=== PATIENT | male | born 1940 | race Caucasian/White ===

== ENCOUNTER → 2019-08-12 | Outpatient (CLI) | payer MEDICARE, OTHER ==
[~2019-08-12] MED LIST: BENAML10/5 PO; NAPR220 PO
== END | disposition home or self-care (01) ==
LOC: LAB SHORT 07:57 → PLD 07:57
DX: C44.319 Basal cell carcinoma of skin of other parts of face (principal); L82.1 Other seborrheic keratosis; L81.4 Other melanin hyperpigmentation
CPT/HCPCS: 88305

== ENCOUNTER 2020-05-25 11:47 | Inpatient (IN) | payer MEDICARE, OTHER ==
[~2020-05-25] VITALS: Ht 182.9 cm; Wt 115.2 kg
[2020-05-25] MEDS ORDERED: LANOXIN PO (12:17)
[2020-05-25] MEDS ORDERED: FUROSEMIDE40 MG PO (12:18)
[2020-05-25] MEDS ORDERED: Amlodipine-Ben1 EAC1 PO (12:18)
[2020-05-25] MEDS ORDERED: POTA10T (12:19)
[2020-05-25] MEDS ORDERED: METFORMIN HCL500 M2 PO (12:19)
[2020-05-25 12:30] LABS: BASOPHILS ABSOLUTE AUTO 0.05 K/mm3 (0.00-0.23); BASOPHILS PERCENT AUTO 0 % (0-2); EOSINOPHILS ABSOLUTE AUTO 0.04 K/mm3 (0.00-0.68); EOSINOPHILS PERCENT AUTO 0 % (0-6); Hematocrit 44.5 % (37.0-53.0); Hemoglobin 14.2 g/dL (13.5-17.5); IMMATURE GRAN ABSOLUTE AUTO 0.04 K/mm3 (0.00-0.10); IMMATURE GRAN PERCENT AUTO 0 % (0-1); LYMPHOCYTES ABSOLUTE AUTO 0.93 K/mm3 (0.84-5.20); LYMPHOCYTES PERCENT AUTO 7 % (21-46); MONOCYTES ABSOLUTE AUTO 0.98 K/mm3 (0.16-1.47); MONOCYTES PERCENT AUTO 8 % (4-13); Mean Corpuscular HGB 29.6 pg (26.0-34.0); Mean Corpuscular HGB Conc 31.9 g/dL (31.5-36.5); Mean Corpuscular Volume 93 fL (80-100); Mean Platelet Volume 9.8 fL (9.1-12.4); NEUTROPHILS PERCENT AUTO 84 % (41-73); Platelet Count 267 K/mm3 (150-400); White Blood Cell Count 13.14 K/mm3 (4.00-11.30)
[2020-05-25 12:46] LABS: Alanine Aminotransfer (ALT/SGP 27 U/L (12-78); Albumin/Globulin Ratio 0.5 (0.8-1.8); Alk Phos 410 U/L (50-136); Anion Gap 8 mmol/L (6-16); Aspartate Aminotrans (AST/SGOT 109 U/L (12-37); Bilirubin, Total 1.7 mg/dL (0.1-1.0); Blood Urea Nitrogen 15 mg/dL (8-24); Bun/Creatinine Ratio 21.2 (12.0-20.0); CO2, Blood 29 mmol/L (21-32); Calcium, Blood 8.7 mg/dL (8.5-10.1); Chloride, Blood 102 mmol/L (98-108); Creatinine, Blood 0.71 mg/dL (0.60-1.20); Globulin, Blood 4.3 g/dL (2.2-4.0); Glomerular Filtration Rate >60 (60-); Glucose, Blood 136 mg/dL (70-99); Potassium, Blood 3.8 mmol/L (3.5-5.5); Sodium, Blood 139 mmol/L (136-145); Total Protein, Blood 6.3 g/dL (6.4-8.2)
[2020-05-25 14:14] LABS: Digoxin (Lanoxin) 0.07 ug/mL (0.80-2.00); Troponin I <0.015 ng/mL (0.000-0.040)
[2020-05-25 15:08] LABS: Influenza A, PCR NEGATIVE (NEGATIVE); Influenza B, PCR NEGATIVE (NEGATIVE); Resp Syncytial Virus, PCR NEGATIVE (NEGATIVE); SARS-Cov-2 (COVID-19) PCR, MMC NEGATIVE (NEGATIVE)
[2020-05-25 17:42] LABS: Source, Urine Clean Catch
[2020-05-25 17:55] LABS: Appearance, Urine Hazy (Clear); Blood, Urine 4+ (Neg); Color, Urine Amber (P-Yellow); Glucose Qualitative, Urine Neg (Neg); Ketones, Urine 1+ (Neg); Leukocyte Esterase, Urine 1+ (Neg); Nitrite, Urine Pos (Neg); Protein, Urine 2+ (Neg); Specific Gravity, Urine 1.025 (1.003-1.022); Urobilinogen, Urine 4+ (Normal)
[2020-05-25 18:23] LABS: Bilirubin, Urine 1+ (Neg)
[2020-05-25 18:28] LABS: Mucus Heavy (0-Heavy); Squamous Epithelial Cells Rare /hpf (Few)
[2020-05-25 18:29] LABS: Amorphous Light (0-Heavy); Bacteria Many /hpf
--- NOTE | 2020-05-25 18:51 | NUR ---
SHIFT SUMMARY PT ADMITTED FROM ED TO ICU 10 AROUND 1700. PT IS ALERT AND ORIENTEDx4, VERY HARD OF HEARING. PT ARRIVED WITH BIPAP ON 10/ FIO2 30%. FINE CRACKLES NOTED IN THE BASES. MONITOR SHOWED PT TO BE IN A-FIB RVR AND PT WAS STARTED ON AMNIODARON GTT PER ORDERS. SBP LOWS, MAP HAS MAINTAINED >65, DR ANGUIANO AWARE, LEVOPHED ON STANDBY. ALBRECHT CATH PLACED WITH DARK MCKAY URINE RETURNED. ABDOMINAL ULTRASOUND COMPLETED, AWAITING RESULTS.
[2020-05-25 19:47] LABS: PCO2 Arterial 44.9 mmHg (35-45); PO2 Arterial 75.8 mmHg (80-100); pH Blood Arterial 7.52 (7.35-7.45)
--- NOTE | 2020-05-25 20:02 | NUR ---
ASSUMED CARE OF PT AT 1915. REPORT RECEIVED AT BEDSIDE. PT PRESENTS IN BED. AMIODARONE INFUSING. PT VERY [place]. ANSWERS QUESTIONS APPROPRIATELY. NO COMPLAINTS OF PAIN OR DYSPNEA AT THIS TIME. ABG IN PROCESS OF BEING DRAWN AND PROCESSED BY RT. REFLEX LABS DRAWN FOR LACTIC ACID AND TROPONIN. PENDING RESULTS. WILL REVIEW CHART AND PLAN OF CARE FOR THIS PT.
--- NOTE | 2020-05-25 22:30 | NUR ---
PT HAS GONE AND RETURNED FROM CT. RESULTS BEING READ BY [facility]IRTUAL RADIOLOGY. PENDING RESULTS. PT TOLERATED THIS FAIR. OF NOTE: HEART RATE REMAINS ELEVATED 150'S TO 180'S IN AFIB RVR.
--- NOTE | 2020-05-26 02:08 | NUR ---
DR ANGUIANO AWARE OF CT RESULTS AND SHE SPOKE WITH DR ROTH PER PHONE AND REPORTED BACK THAT IT WILL BE DR RIVERA THAT WILL SEE PT IN AM. DID UPDATE PT ON RESULTS PER REQUEST OF . PT DID REQUEST THAT I CALL BERTHA TO INFORM HER OF FINDINGS. DID SO, AND ALLOWED FOR QUESTIONS. PT'S HEART RATE HAS REMAINED ELEVATED. AMIODARONE DRIP TO 0.5 MG/HR FOR 18 HOURS. ORDER RECEIVED FROM DR RIVERA FOR DIGOXIN AND FLUID BOLUSES. THIS IN PROCESS OF BEING DONE. PT REFUSES TO WEAR CPAP, AND IS NOW ON 5 L/M O2 PER NASAL CANNULA. WILL CONTINUE TO MONITOR.
--- NOTE | 2020-05-26 02:37 | NUR ---
PT HAS DROP IN BLOOD PRESSURES EVEN WITH SALINE BOLUS IN PROCESS. HAVE INTITIATED LEVOPHED DRIP AT 5 MCG'S/MIN. WILL TITRATE TO MAINTAIN MAP >65. PT NOTED TO BE SWEATY. AFEBRILE AT THIS TIME. WILL MONITOR.
[2020-05-26 04:30] LABS: Hematocrit 43.2 % (37.0-53.0); Hemoglobin 13.7 g/dL (13.5-17.5); Mean Corpuscular HGB 29.3 pg (26.0-34.0); Mean Corpuscular HGB Conc 31.7 g/dL (31.5-36.5); Mean Corpuscular Volume 93 fL (80-100); Mean Platelet Volume 10.2 fL (9.1-12.4); Platelet Count 270 K/mm3 (150-400); RDW Coefficient Variation 15.1 % (11.7-14.2); RDW Standard Deviation 51.2 fL (35.1-46.3); Red Blood Cell Count 4.67 M/mm3 (4.30-5.90); White Blood Cell Count 18.22 K/mm3 (4.00-11.30)
[2020-05-26 04:50] LABS: Alanine Aminotransfer (ALT/SGP 23 U/L (12-78); Albumin, Blood 1.9 g/dL (3.4-5.0); Albumin/Globulin Ratio 0.5 (0.8-1.8); Alk Phos 338 U/L (50-136); Anion Gap 6 mmol/L (6-16); Aspartate Aminotrans (AST/SGOT 88 U/L (12-37); Bilirubin, Total 2.9 mg/dL (0.1-1.0); Blood Urea Nitrogen 18 mg/dL (8-24); Bun/Creatinine Ratio 20.5 (12.0-20.0); CO2, Blood 32 mmol/L (21-32); Calcium, Blood 8.1 mg/dL (8.5-10.1); Chloride, Blood 104 mmol/L (98-108); Creatinine, Blood 0.88 mg/dL (0.60-1.20); Globulin, Blood 3.8 g/dL (2.2-4.0); Glomerular Filtration Rate >60 (60-); Glucose, Blood 91 mg/dL (70-99); Potassium, Blood 3.3 mmol/L (3.5-5.5); Sodium, Blood 142 mmol/L (136-145); Total Protein, Blood 5.7 g/dL (6.4-8.2); Troponin I <0.015 ng/mL (0.000-0.040)
[2020-05-26 05:06] LABS: D-Dimer, Quantitative 14.61 mg/L FEU (0.00-0.52); International Normalized Ratio 1.19; Prothrombin Time Results 12.6 Sec (9.7-11.5)
--- NOTE | 2020-05-26 06:30 | NUR ---
PT HAS CONTINUED ON 5CG LEVOPHED WHEREAS HIS BLOOD PRESSURES HAVE BEEN MAINTAINING WITH MAP > 65. PT HAS BEEN ABLE TO REST DURING THE NIGHT. NO FURTHER COMPLAINTS OF ABDOMINAL PAIN OR CATHETER PAIN. WILL CONTINUE TO MONITOR PT, AND WILL REPORT OFF TO ONCOMING RN.
--- NOTE | 2020-05-26 08:30 | NUR ---
ASSUMED CARE OF PT PT IS ALERT AND ORIENTEDx4, VERY [place], RIGHT EAR BED, RESTING IN BED. DR RIVERA CAME TO EVAL PT AND WILL ROUND BACK AFTER DISCUSSING CT RESULTS WITH RADIOLOGIST. AMNIODARONE INFUSING AT 0.5MG/MIN, A-FIB ON THE MONITOR RATE 90'S-100'S. PT ON LEVOPHED AT 5MCG/MIN, MAP >65%. PTS O2 AT 4L VIA NC, SPO2 > 92%. ATTEMPTED TO ANSWER QUESTIONS ABOUT POSSIBLE SURGERY. PT REQUESTED FAMILY BE INVOLVED IN DECISIONS. CALL PT'S FRIEND AND FAMILY AND WILL COME IN FOR CARE CONFERENCE. DISCUSSED PTS CASE WITH PALLITIVE CARE.
--- NOTE | 2020-05-26 11:25 | NUR ---
Case conference with pt's RN and hospitalist prior to my initial visit. Upon entering room at tail end of Dr Shaffer's visit, pt and family members listening to give full report of status, concerns and plan of care. finished her assessment and I remained to discuss pt's wishes, goals of care and answer questions. Pt in obvious severe pain with palpation to very large and distended abdomen. Pt's lower extremeties very edemetous alfie. Pt is extremely [place] and does best with us talking directly into his right ear. He is alert and oriented and asks appropriate questions. When asked if he had any questions, he stated I will in 5 minutes. He stated several times after being given a lot of information by and some more info from me and his nurse that he would discuss his options and wishes with his constantine and his friend(ex-) at bedside also and let us know what he wanted to do. Staff left the room and gave privacy to pt and family for further discussion. Later I met with constantine and ex- outside of ICU. They report pt has decided to proceed with abd surgery and will reeval further tx after that. They asked advice re: pt's other constantine, who is currently in active in-pt tx/rehab for alcoholism and whether or not to update her re: her dad. I recommended they contact the rehab staff and follow their professional advice based on her individual circumstances and whether or not she was thru a detox period and clear headed at this time. Family expressed appreciation for the care and conversations with Danis t/o the am. Plan to f/u after surgery for s/s management, advanced care planning and support.
--- NOTE | 2020-05-26 12:03 | NUR ---
REASSESSMENT PT RESTING IN BED, CARE CONFRENCE DONE WITH PT, FAMILY, CHIKSI NINO FROM PALLITIVE CARE AND DR ANGUIANO. TREATMENT OPTIONS WERE PRESENTED AND PT RECENTLY EXPRESSED TO RN THAT HE WANTS TO PROCEED WITH SURGERY. MONITOR CONTINUES TO SHOW PT TO BE IN A-FIB, WITH RATES 90-130'S. AMNIODARONE REMAINS ON WITH NO CHANGES. LEVOPHED FOR BLOOD PRESSURE SUPPORT HAS BEEN TITRATED DOWN TO MAINTAIN MAP >65. ALBRECHT DRAINING DARK MCKAY URINE WITH 25-30MLS/HR, DR ANGUIANO MADE AWARE. PICC LINE RN AT BEDSIDE PLACING LINE. ABDOMINAL PAIN NOT IMPROVING WITH INITIAL PRN FENTYNAL, ORDERS RECEIVED FOR INCREASED DOSE.
--- NOTE | 2020-05-26 14:29 | NUR ---
PT TAKEN TO OR BY ANETHESIOLOGIST AND OR TEAM. FAMILY WAS AT BEDSIDE PRIOR TO PT BEING TAKEN. CONTACT # FOR FAMILY: SAVI (DAUGHTER) - CELL: [phone]
--- NOTE | 2020-05-26 18:34 | NUR ---
SHIFT SUMMARY PT ARRIVED BACK INTUBATED FROM OR AT 1730 FOR SIGMOID COLECTOMY W/ END COLOSTOMY. PRIOR TO ARRIVAL PT HAD RECEIVED DOSE OF SEDATIVE/PARALYTIC BY ANETHESIOLOGIST. LEVOPHED @ 8 AND AMNIODARONE COMPLETED DURING PROCEDURE. PICC LINE PLACED PRIOR TO OR. PT REMAINS IN A-FIB WITH RATES 90'S-130'S. MIDLINE INCISION WITH SCANT AMOUNT RED DRAINAGE ON JADE DRESSING. DRAINAGED MARKED UPON ARRIVAL TO ICU, NO CHANGES TO AMOUNT NOTED. LLQ HAS NEW COLOSTOMY WITH APPLIANCE, NO DRAINAGE, STOMA RED. ALBRECHT IN PLACE, DIMINISHED OUTPUT, MORE ORANGE/CLOUDY AFTER PT RETURNED FROM OR. AFTER PT STARTED TO WAKE UP, PROPOFOL WAS INITIATED. PT PLACED IN RESTRAINTS TO PROTECT FROM SELF EXTUBATION. LEVOPHED TITRATED UP TO MAINTAIN MAP >65.
--- NOTE | 2020-05-26 20:00 | NUR ---
ASSUMED CARE OF PT AT 1915. REPORT RECEIVED AT BEDSIDE. PT PRESENTS IN BED. INTUBATED. AC 14, Tv 500, FIO2 65 PERCENT, PEEP 5. PT ON LEVOPHED DRIP TO MAINTAIN MAP > 65. MIDLINE DRESSING WITH SOME SHADOW DRAINAGE. PER OFFGOING RN SHE STATES SOME NEW DRAINAGE. BOWEL TONES HYPOACTIVE. COLOSTOMY INTACT. STOMA WNL. WILL REVIEW CHART AND PLAN OF CARE FOR THIS PT.
[2020-05-26 20:14] LABS: PCO2 Venous 47.8 mmHg (38-42); pH Blood Venous 7.42 (7.34-7.37)
[2020-05-26 20:15] LABS: Base Excess Venous 6.1 mmol/L; Bicarbonate Venous 28.8 mmol/L (24.0-30.0); PO2 Venous 61.4 mmHg (38-42)
--- NOTE | 2020-05-26 23:49 | NUR ---
RESPIRATORY THERAPY READJUST ETT PER DR PRUETT. 23 AT TEETH. HAVE MEDICATED TWICE THIS SHIFT WITH 50 MCG FENTANYL FOR VENT TOLERANCE, AND POST OP PAIN. HEART RATE HAS REMAINED LESS THAN 130 BPM'S. NO S/S DISTRESS BY PT. WILL CONTINUE TO MONTIOR.
--- NOTE | 2020-05-27 06:39 | NUR ---
PT HAS BEEN MEDICATED THREE TIMES WITH 50 MCG'S FENTANYL FOR PRESUMED POST OP PAIN AND FOR VENT TOLERANCE. GOOD RESULTS. HAVE BEEN ATTEMPTING TO TITRATE DOWN LEVOPHED THOUGH THIS HAS BEEN SLOW PROGRESS. PROPOFOL HAS BEEN AT 30 MCG'S. HAS HAD LOW GRADE TEMP AT 100.2. REMOVED BLANKETS. WILL CONTINUE TO MONITOR PT, AND WILL REPORT OFF TO ONCOMING RN.
--- NOTE | 2020-05-27 07:24 | NUR ---
ASSUMED CARE: PT INTUBATED WITH SETTINGS AC/14/500/55/5. CURRENTLY ON LEVOPHED AT 15MCG/MIN. PROPOFOL FOR SEDATION AT [address] AND CLAMPED. PLACEMENT VERIFIED BY XRAY. NPO AT THIS TIME. WILL VERIFY WITH MD ON USE. ALBRECHT IN PLACE. BILATERAL WRIST RESTRAINTS TO PROTECT LINES. NO ACUTE NEEDS OR CONCERNS.
[2020-05-27 07:52] LABS: Hematocrit 41.6 % (37.0-53.0); Hemoglobin 13.3 g/dL (13.5-17.5); Mean Corpuscular HGB 29.4 pg (26.0-34.0); Mean Corpuscular Volume 92 fL (80-100); Mean Platelet Volume 9.5 fL (9.1-12.4); Platelet Count 278 K/mm3 (150-400); RDW Coefficient Variation 15.2 % (11.7-14.2); RDW Standard Deviation 51.5 fL (35.1-46.3); Red Blood Cell Count 4.52 M/mm3 (4.30-5.90); White Blood Cell Count 14.69 K/mm3 (4.00-11.30)
[2020-05-27 08:09] LABS: Anion Gap 6 mmol/L (6-16); Blood Urea Nitrogen 25 mg/dL (8-24); Bun/Creatinine Ratio 24.5 (12.0-20.0); CO2, Blood 31 mmol/L (21-32); Calcium, Blood 8.1 mg/dL (8.5-10.1); Chloride, Blood 102 mmol/L (98-108); Creatinine, Blood 1.02 mg/dL (0.60-1.20); Glomerular Filtration Rate >60 (60-); Glucose, Blood 156 mg/dL (70-99); Potassium, Blood 3.9 mmol/L (3.5-5.5); Sodium, Blood 139 mmol/L (136-145)
--- NOTE | 2020-05-27 09:00 | NUR ---
SEDATION VACATION: PT OPENED EYES WHEN SPOKEN TO. ASKED PT IF HE COULD SQUEEZE HANDS AND HE SHOOK HIS HEAD NO. UNABLE TO FOLLOW COMMANDS. PT GRIMACED TO NOXIOUS STIMULI. PROPOFOL RETURNED TO 30MCG
--- NOTE | 2020-05-27 13:07 | NUR ---
DISCUSSED PT'S HR WITH DR MANZANO. REVIEWED MEDS AND PLACED NEW ORDERS. INSTRUCTED RN TO GIVE FIRST DOSE DIGOXIN, THEN SECOND DOSE, THEN THREE DOSES OF ALBUMIN AND THEN CARDIZEM GTT AFTER THAT. RELIGIOUS ASSISTANT AWARE
--- NOTE | 2020-05-27 14:25 | NUR ---
CALL TO DR RIVERA TO DISCUSS FURTHER PLANS FOR PT. STATES OK TO USE OG FOR MEDS OR FEEDINGS, DO NOT NEED TO DECOMPRESS AT THIS TIME. AWARE THAT PT IS HAVING HYPOACTIVE BOWEL TONES. RELAYED TO DR RIVERA THAT SMALL AMOUNT OF BLOOD IS COMING FROM OSTOMY BUT NO STOOL YET AND THAT PT IS STILL PUTTING OUT SOME STOOL RECTALLY. NO FURTHER CONCNERNS AT THIS TIME.
--- NOTE | 2020-05-27 15:22 | NUR ---
SPOKE WITH DR MANZANO AND MADE HIM AWARE THAT DR RIVERA SAYS WE CAN USE OG IF WE NEED TO. DR MANZANO SAYS TO CONTINUE WITH PLAN FOR ALBUMIN AND CARDIZEM IF NEEDED FOR HR GREATER THAN 120. STATES THAT HE WILL REEVALUATE FOR ORAL MEDS TOMORROW. FAMILY AT BEDSIDE. NO FURTHER NEEDS AT THIS TIME
--- NOTE | 2020-05-27 18:23 | NUR ---
PT TURNED TO LEFT SIDE AND NOTED TO DESATURATE INTO THE 80S. OG FILLED WITH GREEN BILE THAT HAS BEEN CLEAR BEFORE. CAGE LOADER RECOMMENDED LIS. TITRATED FIO2 TO 45% TO MAINTAIN SATURATION.
--- NOTE | 2020-05-27 18:38 | NUR ---
SHIFT SUMMARY: PT REMAINS INTUBATED AC 14/500/45%/5. HAD TO INCREASE FIO2 WITH TURN TO LEFT SIDE. BILE NOTED IN NG WITH TURN AND LIS STARTED TO RELEAVE DISTENDED ABDOMEN. MEDICATED X1 FOR PAIN, NO EXTRA DRAINAGE FROM ABDOMINAL INCISION NOTED. LEVOPHED OFF, PROPOFOL AT 30MCG AT THIS TIME. MEDICATED AFIB RVR WITH DIGOXIN, FLUID BOLUS AND ALBUMIN. HR IMPROVED AT THIS TIME. CARDIZEM GTT AVAILABLE IF NEEDED. NO FURTHER NEEDS AT THIS TIME.
--- NOTE | 2020-05-27 21:00 | NUR ---
ASSUMED PT CARE @ 1900: PT IS INTUBATED & SEDATED. VENT: AC 14/500, 5/45%. GTTs: PROPOFOL 30mcg/kg/hr. PT UNABLE TO FOLLOW COMMANDS, WINCES @ NOXIOUS STIMULI. MONITOR INDICATES AFIB W/ HR 80s-100s. SBP LOW 100s & LEVOPHED IS ON STANDBY. CORE TEMP NOW 99.9. ICE PACKS PLACED TO CHAYITO AXILLA & NECK. WILL CONTINUE TO MONITOR & REPORT APPROPRIATE.
[2020-05-28 04:28] LABS: BASOPHILS ABSOLUTE AUTO 0.01 K/mm3 (0.00-0.23); BASOPHILS PERCENT AUTO 0 % (0-2); EOSINOPHILS ABSOLUTE AUTO 0.09 K/mm3 (0.00-0.68); EOSINOPHILS PERCENT AUTO 1 % (0-6); Hematocrit 33.9 % (37.0-53.0); Hemoglobin 10.9 g/dL (13.5-17.5); IMMATURE GRAN ABSOLUTE AUTO 0.07 K/mm3 (0.00-0.10); IMMATURE GRAN PERCENT AUTO 1 % (0-1); LYMPHOCYTES ABSOLUTE AUTO 0.55 K/mm3 (0.84-5.20); LYMPHOCYTES PERCENT AUTO 6 % (21-46); MONOCYTES ABSOLUTE AUTO 0.42 K/mm3 (0.16-1.47); MONOCYTES PERCENT AUTO 4 % (4-13); Mean Corpuscular HGB 29.9 pg (26.0-34.0); Mean Corpuscular HGB Conc 32.2 g/dL (31.5-36.5); Mean Corpuscular Volume 93 fL (80-100); Mean Platelet Volume 9.3 fL (9.1-12.4); NEUTROPHILS ABSOLUTE AUTO 8.58 K/mm3 (1.96-9.15); NEUTROPHILS PERCENT AUTO 88 % (41-73); Platelet Count 160 K/mm3 (150-400); RDW Coefficient Variation 15.1 % (11.7-14.2); Red Blood Cell Count 3.64 M/mm3 (4.30-5.90); White Blood Cell Count 9.72 K/mm3 (4.00-11.30)
[2020-05-28 04:50] LABS: Albumin, Blood 1.8 g/dL (3.4-5.0); Anion Gap 4 mmol/L (6-16); Blood Urea Nitrogen 29 mg/dL (8-24); Bun/Creatinine Ratio 33.3 (12.0-20.0); CO2, Blood 31 mmol/L (21-32); Calcium, Blood 7.8 mg/dL (8.5-10.1); Chloride, Blood 103 mmol/L (98-108); Creatinine, Blood 0.87 mg/dL (0.60-1.20); Glomerular Filtration Rate >60 (60-); Glucose, Blood 120 mg/dL (70-99); Phosphorus, Blood 3.2 mg/dL (2.5-4.9); Potassium, Blood 3.5 mmol/L (3.5-5.5); Sodium, Blood 138 mmol/L (136-145)
--- NOTE | 2020-05-28 05:35 | NUR ---
SEDATION VACATION: PROPOFOL GTT DEC TO 10mcg/kg/hr. AFTER APPROX 10min, PT BEGAN TO ROUSE. OPENING EYES WHEN INSTRUCTED, NOD TO YES/NO QUESTIONS. UNABLE TO SQUEEZE HANDS. RT AT BEDSIDE FOR BERNARDO PT PLACED ON SPONT PS 7, 5/45% & IS TOLERATING WELL THUS FAR. VSS.
--- NOTE | 2020-05-28 06:11 | NUR ---
SHIFT SUMMARY: PT REMAINS INTUBATED & SEDATED. VENT: PS 7, 5/45%. PROPOFOL @ 20mcg/kg/hr. PT PLACED ON SPONTANEOUS @ APPROX 0530 & SINCE THAT TIME PT HAS BEEN TOLERATING WELL W/ NO DISTRESS NOTED. VSS. IMPROVED URINE OUTPUT THIS SHIFT, 500mls. OSTOMY DRAINING ORANGE/RED JELLY DRAINAGE. DRESSING INTACT & UNCHANGED. ABD TENDER TO PALP & W/ POSITION CHANGES. PRN FENTANYL GIVEN & HELPFUL W/ REPOSITIONING. NO ACUTE NEG CHANGES.
--- NOTE | 2020-05-28 07:55 | NUR ---
PT REMAINS INTUBATED, SEDATED, AND RESTRAINED. PROPOFOL @ 10MCG/KG/MIN-PT OPENS EYES TO VERBAL STIMULI AND FOLLOWS A FEW SIMPLE COMMANDS. PT GRIMACING AND PULLING ON RESTRAINTS WITH ORAL CARE. MED WITH FENTANYL 50 MCG IVP X1-SEE EMAR. ECG CONTINUES AFIB WITH RATE 90'S. BP STABLE-NO PRESSORS. PT AFEBRILE. ETT TO VENT: PS 7, FIO2 45%, PEEP 5- RR 16-20-SATS>90%. LUNGS DIMINISHED THROUGH OUT-MINIMAL ETT SECRETIONS. OGT TO LIS WITH SMALL AMOUNT OF BROWN/GREEN LIQUID DRAINAGE. OSTOMY STOMA PINK. SMALL AMOUNT OF ORANGE, GELATINOUS DRAINAGE. MIDLINE DRESSING INTACT WITH SMALL AMOUNT OF OLD SANGINOUS DRAINAGE-JADE DRESSING INTACT. BT'S ABSENT. ABDOMEN REMAINS DISTENDED. GENERALIZED EDEMA CONTINUES. ALBRECHT WITH SCANT AMOUNT OF ORANGE URINE WITH SEDIMENT. WILL CONTINUE WEANING TRIAL. ANTICIPATE POSSIBLE EXTUBATION LATER THIS AM. WILL ADDRESS CODE STATUS WITH AND FAMILY PRIOR TO EXTUBATION.
--- NOTE | 2020-05-28 09:00 | NUR ---
SPOKE WITH PT DAUGHTER-UPDATED TO PT STATUS AND PLAN OF CARE. PT DAUGHTER BELIEVES THAT PT HAS AN ADVANCED DIRECTIVE AT HOME THAT INDICATES THAT HE IS TO BE A DNR. PT DAUGHTER TO GO TO PT HOUSE TODAY TO TRY TO FIND THE ADVANCED DIRECTIVE AND WILL GET BACK TO MEDICAL STAFF SOON POSSIBLE.
--- NOTE | 2020-05-28 11:30 | NUR ---
PT EXTUBATED AND PLACED ON 4 LITERS NASAL CANULA IN THE MOUTH PT IS MOUTH BREATHER. MAINTAINING SATS>90%. PT IS SLOW TO RESPOND, VOICE IS HOARSE. WEAK, NONPRODUCTIVE COUGH. BT'S STILL ABSENT-OSTOMY WITH 250 CC ORANGE, GELATINOUS FLUID EMPTIED. PT HAS BEEN MADE DNR PER HIS ADVANCED DIRECTIVE THAT HIS DAUGHTER AND EX- FOUND AT HIS HOME.
--- NOTE | 2020-05-28 12:30 | NUR ---
HR 170'S AFIB. SATS 87% ON 4 LITERS CANULA VIA MOUTH. PT MOANING AND GRIMACING-MED WITH FENTANYL 50 MCG IVP X 1. OSTOMY WITH ANOTHER 400 CC OF ORANGE, LIQUID DRAINAGE EMPTIED. DR. MANZANO AWARE. PT FAMILY CONTACTED AND GIVEN UPDATE. PT FAMILY IS ON THE WAY TO THE HOSPITAL.
--- NOTE | 2020-05-28 15:00 | NUR ---
PT HAS BEEN MADE COMFORT CARE STATUS. PT ABLE TO COMMUNICATE THAT HE IS HAVING ABDOMINAL PAIN. VOICE QUALITY HAS IMPROVED. MED WITH MORPHINE-SEE EMAR. REPOSITIONED TO COMFORT IN SEMI FOWLERS POSITIION. WHEN ASKED IF PT MORE COMFORTABLE, HE STATES "SO FAR, SO GOOD."
--- NOTE | 2020-05-28 15:45 | NUR ---
PT CONTINUES TO REPORT ABDOMINAL PAIN-NOW 11/11. MED WITH MORPHINE SULFATE 4 MG IVP X 1-SEE EMAR.
--- NOTE | 2020-05-28 17:21 | NUR ---
OSTOMY CONTINUES TO DRAIN LARGE AMOUNTS OF ORANGE, GELATINOUS FLUID. LEAKING NOTED AROUND OSTOMY APPLIANCE. BENZOIN APPLIED UNDER LIFTED AREAS ON STOMA APPLIANCE AND RE-ENFORCED WITH TEGADERM. PT MOANING AND GRIMACING WHEN ABDOMEN TOUCHED. PT REPORTS 7/10 ABDOMINAL PAIN. MED WITH ROXANOL SL AND [id number] TO COMFORT ON RIGHT SIDE UTILIZING CEILING LIFT. PT TOLERATING SIPS OF WATER QUITE WELL. COUGH REMAINS VERY WEAK AND NONPRODUCTIVE.
--- NOTE | 2020-05-28 19:00 | NUR ---
ASSUMED CARE OF PT, PT APPEARS TO BE RESTING COMFOTABLY IN BED, DENIES ANY NEEDS AT THIS TIME.
--- NOTE | 2020-05-29 07:02 | NUR ---
SHIFT SUMMARY PT RESTED WELL T/O THE NIGHT, MEDICATED x1 FOR PAIN. REPORT GIVEN TO KAIA SERRANO.
--- NOTE | 2020-05-29 07:19 | NUR ---
PT GRIMACING, LABORING TO BREATHE, AIR HUNGER NOTED. SATS 56%. MED WITH MORPHINE SULFATE 4 MG IVP X1 AND ROXANOL 20 MG SL. CONTACTED PT FAMILY IN THE EVENT THAT THEY WANTED TO BE PRESENT FOR PT PASSING IT APPEARS TO BE MORE EMINENT. PT FAMILY ON THEIR WAY TO THE HOSPITAL.
--- NOTE | 2020-05-29 09:00 | NUR ---
PT WITH FAMILY AT THE BEDSIDE. FINAL DISHARGE COMPLETED AND BELONGINGS SENT HOME WITH FAMILY.
== END 2020-05-29 09:00 | DRG 853 ==
LOC: ER 11:47 → ICUW 14:55
PROVIDERS: Emergency Medicine; Internal Medicine Critical Care Medicine; Internal Medicine Pulmonary Disease; Physician Assistant; ADMIT Internal Medicine
PROC: 0BH17EZ Insertion of Endotracheal Airway into Trachea, Via Natural or Artificial Opening (ICD-10-PCS; principal; 2020-05-25)
PROC: 5A1945Z Respiratory Ventilation, 24-96 Consecutive Hours (ICD-10-PCS; 2020-05-25)
PROC: 5A09357 Assistance with Respiratory Ventilation, Less than 24 Consecutive Hours, Continuous Positive Airway Pressure (ICD-10-PCS; 2020-05-25)
PROC: 3E033XZ Introduction of Vasopressor into Peripheral Vein, Percutaneous Approach (ICD-10-PCS; 2020-05-25)
PROC: 0WPF0JZ Removal of Synthetic Substitute from Abdominal Wall, Open Approach (ICD-10-PCS; 2020-05-26)
PROC: 0D1M0Z4 Bypass Descending Colon to Cutaneous, Open Approach (ICD-10-PCS; 2020-05-26)
PROC: 0DTN0ZZ Resection of Sigmoid Colon, Open Approach (ICD-10-PCS; 2020-05-26)
DX: A41.9 Sepsis, unspecified organism (principal); R65.21 Severe sepsis with septic shock; J96.01 Acute respiratory failure with hypoxia; J96.02 Acute respiratory failure with hypercapnia; K63.1 Perforation of intestine (nontraumatic); Z66 Do not resuscitate; Z51.5 Encounter for palliative care; I50.21 Acute systolic (congestive) heart failure; C18.7 Malignant neoplasm of sigmoid colon; C78.7 Secondary malignant neoplasm of liver and intrahepatic bile duct; C78.00 Secondary malignant neoplasm of unspecified lung; I48.91 Unspecified atrial fibrillation; E66.01 Morbid (severe) obesity due to excess calories; E78.5 Hyperlipidemia, unspecified; F41.9 Anxiety disorder, unspecified; F32.9 Major depressive disorder, single episode, unspecified; F43.10 Post-traumatic stress disorder, unspecified; G89.29 Other chronic pain; F17.210 Nicotine dependence, cigarettes, uncomplicated; F11.90 Opioid use, unspecified, uncomplicated; E11.9 Type 2 diabetes mellitus without complications; Z68.33 Body mass index [BMI] 33.0-33.9, adult; Z98.890 Other specified postprocedural states; Z79.84 Long term (current) use of oral hypoglycemic drugs; Z79.899 Other long term (current) drug therapy
CPT/HCPCS: 0241U; 36415; 36569; 36600; 51702; 51798; 71045; 71250; 74176; 76705; 80048; 80053; 80069; 80162; 81001; 82803; 82947; 83605; 83880; 84484; 85025; 85027; 85379; 85610; 85730; 87040; 87086; 88305; 88309; 93005; 93010; 93306; 94002; 94003; 94660; 96374; 96375; 99285-25; A9270; C1751; C1769; C9113; J0282; J0295; J1160; J1650; J2250; J2270; J2370; J2704; J3010; J3480; J7030; J7050; J7060; P9046